=== PATIENT | female | born 1990 | race Caucasian/White ===

== ENCOUNTER 2023-08-15 09:10 | Outpatient (CLI) | payer BC, SELFPAY ==
[2023-08-18 06:14] LABS: Neisseria gonorrhoeae, NAA Negative (Negative)
== END 2023-08-15 23:59 | disposition home or self-care (01) ==
LOC: LAB.DROPOF 08-16 09:11
PROVIDERS: PCP Obstetrics & Gynecology; Visit Provider Obstetrics & Gynecology
DX: O09.811 Supervision of pregnancy resulting from assisted reproductive technology, first trimester (principal); O21.9 Vomiting of pregnancy, unspecified; Z3A.10 10 weeks gestation of pregnancy
CPT/HCPCS: 87086; 87491; 87591

== ENCOUNTER 2023-10-19 08:57 | Outpatient (CLI) | payer BC, SELFPAY ==
--- NOTE | 2023-10-19 08:58 | US_ITS ---
PROCEDURE: US OB /MATERNAL DETAIL CLINICAL INDICATION: 20 wk + Anatomy Scan-US OB Complete COMPARISON: No exams were available for comparison FINDINGS: Transabdominal sonographic images of the pelvis were obtained. From her established due date she is 20 weeks 0 days. Single viable intrauterine gestation. Breech position. Placenta: Posteriorplacenta grade 1. There is an average amount of fluid. The cervix appears satisfactory. Closed and measuring 3.76 cm in length. Complete survey performed and was unremarkable on the submitted images as in PACS. No discrete anomalies identified on survey imaging by technologist. Active fetus. Three-vessel cord with satisfactory umbilical cord insertion. 4- chamber heart noted. Situs, aortic arch, LVOT, RVOT, three-vessel view appear normal. Survey of brain & ventricles Unremarkable. Cerebellum, thalamus, choroid plexus, cisterna magna appear normal. Face and neck survey unremarkable. Profile, nasion, lips and nose appeared normal. Diaphragm and chest views unremarkable. Abdomen: Both kidneys noted and unremarkable. There in mild bilateral renal pelvis dilation measuring 2.5 mm. Stomach and bladder noted and satisfactory. Spine: Survey of the spine satisfactory with no anomalies identified nor imaged. Cervical, thoracic, lower spine appear normal. Both arms and legs noted. Amniotic Fluid: Adequate. MVP 3.19 cm. There is an anterior fibroid in the uterus measuring 4.5 cm by 3.7 cm. Measurements: Average ultrasound age 20weeks 2days. Estimated due date by ultrasound age 1203/05/2024. Estimated weight 346g BPD = 20weeks 1day HC = 20weeks 0 days AC = 20weeks 5days FL = 20weeks 0 days Growth Percentile= 64 Heart Rate = 146bpm Cerebellum = 19weeks 5days Humerus = 20weeks 5days HC/AC is 1.12 FL/BPD is 0.69 FL/AC is 0.21 IMPRESSION: 1. Viable fetus in the breech presentation with a posterior placenta grade 1. 2. The fluid is within normal limits. MVP 3.19 cm. 3. Anatomical scan appears normal. 4. There is bilateral mild renal pelvis dilation measuring 2.5 mm and suggest repeat scan at 28 weeks. 5. biometry is consistent with dates. 6. There is an anterior fibroid and 4.5 cm x 3.7 cm. Dictated by: Chase Swan MD 10/20/2023 07:48 Chase Swan MD in [place] 10/20/2023 07:48
== END 2023-10-19 23:59 | disposition home or self-care (01) ==
LOC: RAD 08:58
PROVIDERS: PCP Obstetrics & Gynecology; Visit Provider Obstetrics & Gynecology
DX: Z3A.20 20 weeks gestation of pregnancy (principal); Z36.3 Encounter for antenatal screening for malformations; O09.819 Supervision of pregnancy resulting from assisted reproductive technology, unspecified trimester
CPT/HCPCS: 76811

== ENCOUNTER 2023-12-05 13:06 | Outpatient (CLI) | payer BC, SELFPAY ==
[2023-12-05 13:53] LABS: Basophils # 0.1 K/mm3 (0-0.2); Basophils % 0.8 % (0.1-2.0); Eosinophils % 0.3 % (0.1-12.0); Hematocrit 32.3 % (37.0-47.0); Hemoglobin 10.6 g/dL (12.2-16.2); Lymphocytes # 1.6 K/mm3 (0.7-4.5); Lymphocytes % 20.2 % (10-50); Mean Corpuscular HGB Conc 32.9 g/dL (31.8-35.4); Mean Platelet Volume 8.6 fl (7.4-10.4); Monocytes # 0.5 K/mm3 (0.1-1.0); Monocytes % 5.6 % (1.7-9.3); Neutrophils % 73.2 % (37.0-80.0); Platelet Count 237 K/mm3 (142-424); Red Blood Count 3.55 M/mm3 (4.20-5.40); Red Cell Distribution Width 14.5 % (11.5-17.5); White Blood Count 8.2 K/mm3 (4.8-10.8)
[2023-12-05 14:04] LABS: Glucose,Fasting 84 mg/dl (74-100)
[2023-12-05 15:11] LABS: Glucose 1 Hour 155 mg/dL (74-100)
[2023-12-07 12:14] LABS: Rapid Plasma Reagin Ab Titer Non Reactive titer (NonRea<1:1)
== END 2023-12-05 23:59 | disposition home or self-care (01) ==
LOC: LAB 13:07
PROVIDERS: Visit Provider Obstetrics & Gynecology
DX: Z34.81 Encounter for supervision of other normal pregnancy, first trimester (principal)
CPT/HCPCS: 36415; 82951; 85025; 86593

== ENCOUNTER 2023-12-06 20:38 | Outpatient (CLI) | payer BC, SELFPAY ==
[2023-12-06 20:47] VITALS: BMI 30.7
[2023-12-06 20:50] VITALS: BP 129/66; PULSE 94; RESP 17; TEMP 37.2; O2SAT 97; BMI 30.7
[2023-12-06 21:29] LABS: Barbiturates Screen,Urine Negative ng/ml (<200); Benzodiazepines Screen,Urine Negative ng/ml (<200)
[2023-12-06 21:30] LABS: Amphetamine/Metha Screen,Urine Negative ng/ml (<1000)
[2023-12-06 21:31] LABS: Cannabinoid Screen,Urine Negative ng/ml (<50); Methadone Screen,Urine Negative ng/ml (<300)
[2023-12-06 21:32] LABS: Cocaine Screen,Urine Negative ng/ml (<300); Opiate Screen,Urine Negative ng/ml (<300)
[2023-12-06 21:33] LABS: Phencyclidine Screen,Urine Negative ng/ml (<25)
[2023-12-06 21:42] LABS: Microscopic, Urine URINE MICROSCOPIC (MICROSCOPIC)
[2023-12-06 22:01] LABS: Fetal Fibronectin (Rapid) Positive (Negative)
[2023-12-06 22:04] LABS: Appearance,Urine CLEAR (Clear); Bilirubin,Urine Negative (Negative); Blood, Urine Negative (Negative); Color,Urine YELLOW (Yellow); Glucose,Urine (UA) Negative (Negative); Ketones,Urine Negative (Negative); Leukocyte Esterase,Urine Negative (Negative); Nitrate,Urine Negative (Negative); Protein,Urine Negative (Negative); Specific Gravity, Urine <= 1.005 (1.005-1.030); Urobilinogen,Urine 0.2 EU/dl (0.2)
[2023-12-06 22:16] LABS: Bacteria,Urine Trace /lpf
[2023-12-06] MEDS: TERBUTALINE SULFATE 1MG/ML VIAL 0.25 MG SQ (22:35)
[2023-12-06] MEDS: LACTATED RINGERS 1000ML 1,000 ML 999 ML IV (22:35)
== END 2023-12-06 23:50 | disposition home or self-care (01) ==
LOC: OBOUT 20:40 → OB 20:41
PROVIDERS: Obstetrics & Gynecology; Visit Provider Nurse Practitioner Obstetrics & Gynecology
DX: O47.02 False labor before 37 completed weeks of gestation, second trimester (principal); Z3A.26 26 weeks gestation of pregnancy
CPT/HCPCS: 80307; 81001; 82731; G0463; J3105; J7120

== ENCOUNTER 2023-12-07 09:32 | Observation (INO) | payer BC, SELFPAY ==
--- NOTE | 2023-12-07 09:17 | PC.NURSE ---
[facility] [place] 2 and [place] declined at this time d/t weather. [facility] enroute.
[2023-12-07] MEDS: AZITHROMYCIN 500 MG in 0.9 % SODIUM CHLORIDE 250 ML 250 MG IV (09:26)
[2023-12-07] MEDS: MAGNESIUM SULFATE IN WATER 4 GM/50 ML PIGGYBACK IV (09:27)
[2023-12-07 09:28] VITALS: BMI 30.7
[2023-12-07] MEDS: BETAMETHASONE ACET/PHOS 6MG/ML 5ML MDV 12 MG IM (09:31)
--- NOTE | 2023-12-07 09:34 | P.HPDS_ITS ---
General Admission date:: 12/07/23 Discharge date: 12/07/23 *Admission Date: 12/07/23 *Chief complaint: labor. *History of present illness: She is a 33-year-old 1 para 0 at 27 and 0 weeks gestational age with good dates. She was seen in labor and delivery last night with some cramps, a small amount of brown discharge and her cervix was found to be long and closed. She came into the office this morning having discharge as well as a brownish discharge. Speculum examination revealed that there was bulging membranes. A gentle digital examination revealed her cervix being 4 to 5 cm dilated and 90% effaced. Presenting part was not palpated. Ultrasound of the office today showed that the fetus was in the breech presentation with normal fluid and heart rate activity. Ultrasound at 20 weeks revealed normal anatomy with mild unilateral renal pelvis dilation measuring 2.5 mm along with a 4.5 cm uterine fibroid. [facility] Disclaimer: The information contained in this section may have been updated after the patient was seen, as this information can be updated by other users. Surgical History No significant past surgical history Family History Diabetes Social History Smoking Status: Never smoker alcohol intake: never current occupational status: employed Travel in the last 8 weeks: None Other Medical History Have you received the Flu Vaccine for this season: Yes Have you received the Pneumonia Vaccine: No Review of Systems Review of Systems Review of systems:: pertinent systems reviewed and negative unless documented below Exam Data for Last 24 hours I & O for Last 24 hours: Intake & Output 12/04/23 12/05/23 12/06/23 12/07/23 11:59 11:59 11:59 11:59 Weight 202 lb Constitutional Constitutional: no acute distress *Routine HEENT Exam Head: Present normocephalic Eye: Present EOMI ENT: Present mucous membranes moist *Routine Respiratory Exam Respiratory: Present normal respiratory effort; Absent accessory muscle use *Routine Cardiovascular Exam Cardiovascular: Present RRR *Routine Abdominal Exam Abdominal: Present soft *Routine Rectal Exam Rectal:: deferred *Routine Genitalia Exam Genitalia:: normal female Meds Home Medications and Allergies Home Medications ?Medication ?Instructions ?Recorded ?Confirmed ?Type aspirin 81 mg tablet,delayed 81 mg PO DAILY 08/15/23 12/07/23 History release vits no.126-ferrous fum 1 tab PO DAILY 09/12/23 12/07/23 History 28 mg iron-folic acid 800 mcg tablet (Classic ) New Prescriptions to Start Prescriptions: Allergies Allergy/AdvReac Type Severity Reaction Status Date / Time No Known Allergies Allergy Verified 12/07/23 09:05 Hospital Course Hospital Course Hospital Course: I have spoken to Dr. Bigg Rodriguez at high risk and he has accepted her in transfer. She has received 2 g of Ancef IV as well as azithromycin. She has received a 4 g bolus of magnesium sulfate and will receive 2 g an hour. She has received 50 mg p.o. of Indocin. Nonstress test is reactive and there are and there are no contractions on the monitor. An ambulance has been called and she will be sent by ambulance to . There is significant amount of low ground fog and she cannot be flown out in a helicopter. Her condition on discharge is stable. DS: Diagnosis Discharge Diagnosis (1) labor in third trimester: Status: Acute Code(s): O60.03 - labor without delivery, third trimester Qualifiers: labor delivery status: without delivery Qualified Code(s): O60.03 - labor without delivery, third trimester (2) Breech presentation on examination: Status: Acute Code(s): O32.1XX0 - Maternal care for breech presentation, not applicable or unspecified Qualifiers: Fetus number: single or unspecified fetus Qualified Code(s): O32.1XX0 - Maternal care for breech presentation, not applicable or unspecified Discharge Plan Disposition Patient Disposition: Xfer Short-Term Hosp Discharge Order Discharge Orders: Discharge Order (Routine); Ordered 12/07/23 Ordered By: Chase Swan Follow up Plan Prescriptions/Medication Reconciliation: Continued Classic 28 mg iron- 800 mcg tablet 1 tab PO DAILY aspirin 81 mg tablet,delayed release (DR/EC) 81 mg PO DAILY Problem Reconciliation Problems Reviewed?: Yes Patient Discharge Instructions ACTIVITY: Bed rest DIET: NPO Stand Alone Forms: Transfer Record Print Language: [place] Citizen Providers Primary Care Provider: Provider,Referral Admit Provider: Rebekah Pozo Attending Provider: Rebekah Pozo
[2023-12-07] MEDS: LACTATED RINGERS 1000ML 1,000 ML 999 ML IV (09:38)
[2023-12-07] MEDS: LACTATED RINGERS 1000ML 1,000 ML 75 ML IV (09:38)
[2023-12-07] MEDS: CEFAZOLIN SODIUM 2 GM in 0.9 % SODIUM CHLORIDE 100 ML IV (09:40)
[2023-12-07] MEDS: INDOMETHACIN 25 MG CAPSULE 50 MG PO (09:40)
[2023-12-07] MEDS: MAGNESIUM SULFATE IN WATER 20 GM/500 ML IV.SOLN IV (09:51)
[2023-12-07 10:45] LABS: Magnesium 1.7 mg/dl (1.6-2.3)
[2023-12-07 11:34] VITALS: BP 163/95; PULSE 102; RESP 19; TEMP 36.8; O2SAT 99; BMI 30.7
== END 2023-12-07 09:55 | disposition short-term general hospital (02) ==
LOC: OBOUT 09:32 → OB 09:32
PROVIDERS: Nurse Practitioner Obstetrics & Gynecology; Admitting Provider Obstetrics & Gynecology; Visit Provider Obstetrics & Gynecology
DX: O60.03 Preterm labor without delivery, third trimester (principal); O32.1XX0 Maternal care for breech presentation, not applicable or unspecified; Z3A.27 27 weeks gestation of pregnancy
CPT/HCPCS: 83735; G0378; J0456; J0702; J7050; J7120